=== PATIENT | female | born 1945 | race Caucasian/White ===

== ENCOUNTER → 2017-08-26 | Outpatient (CLI) | payer MEDICARE ==
--- NOTE | 2017-08-26 13:00 | Diagnostic Imaging Report ---
PROCEDURE:HIP RIGHT 2-3 VW (+/- PELVIS) COMPARISON:None. INDICATIONS:LOW BACK PAIN FINDINGS: See conclusion. CONCLUSION: No acute fracture or dislocation of the right hip. Degenerative changes of the right SI joint and lower lumbar spine. Dictated by: Leodan Phelan M.D. on 08/26/2017 at 13:02 Electronically approved by: Leodan Phelan M.D. on 08/26/2017 at 13:02
--- NOTE | 2017-08-26 13:09 | Diagnostic Imaging Report ---
PROCEDURE:SP LUMBAR, COMPLETE MIN 4VW TECHNIQUE:AP, lateral, coned-down lateral and bilateral oblique views lumbar spine INDICATION:Low back pain COMPARISON:None. FINDINGS: 5 nonrib-bearing lumbar vertebral bodies. Vertebral body height is normal. Extensive disc space narrowing from T12-S1 with near-complete loss of disc space height at all levels. Asymmetric disc space height loss at L3-L4 results in apex left scoliosis with large marginal osteophytes. Moderate facet arthropathy from L3-S1. CONCLUSION: Severe multilevel degenerative disc disease with moderate facet arthropathy. If the patient has symptoms of neuropathy MRI would be recommended to evaluate for nerve root impingement. Dictated by: Roman Greene M.D. on 08/26/2017 at 13:11 Electronically approved by: Roman Greene M.D. on 08/26/2017 at 13:11
== END ==
LOC: RAD 12:24
PROVIDERS: ATTEND Family Medicine
DX: M54.41 Lumbago with sciatica, right side (principal)
CPT/HCPCS: 72110

== ENCOUNTER → 2017-09-21 | Day surgery (SDC) | payer MEDICARE ==
[2017-09-20 12:11] LABS: BASOPHILS % 0.2 % (0.0-1.0); EOSINOPHILS # (AUTO) 0.2 (0.0-0.4); EOSINOPHILS % 2.9 % (0.0-6.0); HEMATOCRIT 41.3 % (34.2-44.1); HEMOGLOBIN 14.9 g/dL (12.0-16.0); LYMPHOCYTES # (AUTO) 2.3 (1.0-3.2); LYMPHOCYTES % 38.5 % (18.0-39.1); MEAN CORPUSCULAR HEMOGLOBIN 34.7 pg (28-32); MEAN CORPUSCULAR HGB CONC 36.1 g/dL (31-35); MEAN CORPUSCULAR VOLUME 96.3 fL (81-99); MONOCYTES # (AUTO) 0.6 (0.2-0.8); MONOCYTES % 10.7 % (4.4-11.3); NEUTROPHILS # (AUTO) 2.8 (2.1-6.9); NEUTROPHILS % 47.5 % (38.7-80.0); PLATELET COUNT 254 x10e3/uL (140-360); RED BLOOD COUNT 4.29 x10e6/uL (3.6-5.1); RED CELL DISTRIBUTION WIDTH 12.6 % (11.7-14.4)
[2017-09-20 12:30] LABS: INR 1.03; PARTIAL THROMBOPLASTIN TIME 25.2 seconds (23.8-35.5); PROTHROMBIN TIME 12.7 seconds (11.9-14.5)
[2017-09-20 12:38] LABS: ALANINE AMINOTRANSFERASE 23 IU/L (0-55); ALBUMIN 4.4 g/dL (3.5-5.0); ALBUMIN/GLOBULIN RATIO 1.2 (0.8-2.0); ALKALINE PHOSPHATASE 74 IU/L (40-150); ANION GAP 13.1 mmol/L (8-16); BLOOD UREA NITROGEN 9 mg/dL (7-26); BUN/CREATININE RATIO 13 (6-25); CALCIUM 10.5 mg/dL (8.4-10.2); CARBON DIOXIDE 33 mmol/L (22-29); CHLORIDE 90 mmol/L (98-107); CHOL/HDL RATIO 2.1 (3.0-3.6); CHOLESTEROL 240 MD/DL (0-199); EST GLOMERULAR FILTRATION RATE > 60 ML/MIN (60-); GLUCOSE 96 mg/dL (74-118); HDL CHOLESTEROL 115 MG/DL (40-60); LDL CHOLESTEROL 113 MG/DL (60-130); POTASSIUM 4.1 mmol/L (3.5-5.1); SODIUM 132 mmol/L (136-145); TRIGLYCERIDES 62 MG/DL (0-149)
--- NOTE | 2017-09-20 17:38 | Pre Op History & Physical ---
The patient will be presenting for cardiac catheterization with possible intervention. HISTORY: A 72-year-old lady who is known with hypertension and degenerative joint disease. The patient is seen evaluated earlier in our office when she had episodic chest pain. She had stress test which was very low risk stress test. The patient was treated medically. However, she presented on September 15, 2017 with severe chest pain, 4 episodes, progressively worsening and a lot of chest pain. For that reason, we elected to proceed with invasive cardiac workup. CURRENT MEDICATIONS: Aspirin 81 mg daily, metoprolol 50 mg twice a day, Celebrex 200 mg p.r.n., Prempro and Restasis, Prilosec 40 mg. ALLERGIES: CODEINE. PAST MEDICAL HISTORY: Hypertension, arthritis, tonsillectomy, cataract surgery. SOCIAL HISTORY: She is . She is a nonsmoker. She is a social alcohol drinker. She is a professor, educator. FAMILY HISTORY: Father at age 80. He had bypass surgery and CHF. Mother of brain aneurysm. REVIEW OF SYSTEMS: GENERAL: No fever, no chills. HEENT: Unremarkable. PULMONARY: No cough, no hemoptysis. CARDIAC: As per acute illness. GI: Occasional heartburn. : No hematuria. No dysuria. MUSCULOSKELETAL: Right minor knee pain. NEUROLOGIC: No seizure disorder, no headache. PHYSICAL EXAMINATION VITAL SIGNS: Height of 5 feet, 4 inches, weight 153 pounds, blood pressure 140/80, heart rate 60, respiratory rate 18. HEENT: Pupils are equal and reactive. NECK: No elevation of jugular venous pulsation. No bruit. CHEST: Clear to auscultation and percussion. HEART: PMI at 5th left intercostal space, normal 1st and 2nd heart sounds. ABDOMEN: Soft. There are good bowel sounds. EXTREMITIES: No cyanosis, no clubbing, no edema. IMPRESSION AND PLAN: Chest pain, low cardiac risk. Cardiac stress test on August 08, 2017. The patient seen urgently in the office with repeated chest pain. She is hypertensive. She is very anxious. In view of the repeated chest pain and the patient already had noninvasive cardiac workup, the patient is presenting for cardiac catheterization with possible intervention. Procedure, risks, benefits and alternatives are discussed and explained and questions are answered. Job#: [id number]
[~2017-09-21] VITALS: Ht 165.1 cm; Wt 59.0 kg
[2017-09-21] VITALS (11 sets, daily range): BP systolic 128–154; BP diastolic 68–97
[~2017-09-21] MED LIST: CELEBREX100 MG PO; DIPHENHYDRAMINE HCL INJ 50 MG/ML VIAL ONE; ESTRADIOL1 MG PO; FENTANYL CITRATE/PF 100MCG/2 ML INJ ONE; HEPARIN SOD/SOD CHLORIDE 2,000 ML ONE; IOPAMIDOL 370 MG/ML 200 ML INFUS..BTL INJ ONE; LIDOCAINE HCL 2% LOCAL 20 ML VIAL ONE; METOPROLOL-HCT1 EAC1 PO; MIDAZOLAM HCL 2 MG/2 ML VIAL ONE; POTASSIUM CHLO20 ME1 PO; PREMPRO 0.625-1 EAC1 PO; RESTASIS1 EACH OP; SODIUM CHLORIDE 0.9% 1000ML 1,000 ML ONE; TRAZODONE HCL50 MG PO
--- NOTE | 2017-09-21 13:38 | Operative Report ---
DATE OF PROCEDURE: September 21, 2017 TITLE OF PROCEDURE: Left cardiac catheterization. INDICATIONS: Patient having repeated stress test. Patient had noninvasive cardiac workup with low risk cardiac stress test, treated medically. However, patient presented again to the office with severe repeated chest pain, very anxious. So, we decided to proceed with the cardiac cath. TECHNICAL DETAILS: After the usual sterile preparation and draping procedure, intravenous Versed and fentanyl given for sedation, local lidocaine for anesthesia. A 4-Divehi sheath established in place. Jamar left 4 and 3DRC catheter to engage coronary. Pigtail for left ventriculogram and hemodynamic measurement. At the end of the procedure, sheath was removed. Hemostasis achieved manually. No complication and no blood loss. RESULTS: A. Coronary angiogram: 1. Left main: Short left main. 2. LAD: Proximally 20% lesion. A tortuous vessel is noted. 3. Circumflex coronary artery: Small 1st OM, large 2nd OM, tortuosity again noted. 4. Right coronary artery: Dominant artery with minimal plaquing. B. Hemodynamics: Aorta pressure 130/80. LV pressure 130/16. C. Left ventriculogram in the right anterior oblique view showed normal-sized ventricle with an ejection fraction of 60% to 65%. IMPRESSION: 1. Minimal plaquing. 2. Short left main. 3. Dominant right coronary artery. 4. Left ventricular ejection fraction of 60% to 65%. RECOMMENDATIONS: Medical therapy. COMPLICATIONS: None. BLOOD LOSS: None. Job#: [id number]
== END | disposition home or self-care (01) ==
LOC: CATH LAB 09:30
PROVIDERS: ATTEND Internal Medicine Cardiovascular Disease
DX: I25.10 Atherosclerotic heart disease of native coronary artery without angina pectoris (principal); I77.1 Stricture of artery; I10 Essential (primary) hypertension; R06.09 Other forms of dyspnea; R00.2 Palpitations; M19.90 Unspecified osteoarthritis, unspecified site; F41.9 Anxiety disorder, unspecified; Z01.812 Encounter for preprocedural laboratory examination; Z79.82 Long term (current) use of aspirin; Z82.49 Family history of ischemic heart disease and other diseases of the circulatory system
CPT/HCPCS: 36415; 80053; 80061; 85025; 85610; 85730; 93458; C1766; J1200; J2001; J2250; J7030; Q9967

== ENCOUNTER → 2018-02-16 | Day surgery (SDC) | payer MEDICARE ==
--- NOTE | 2018-02-14 16:03 | Diagnostic Imaging Report ---
EXAMINATION: PA and lateral views of the chest. COMPARISON: None CLINICAL HISTORY: Preop exam DISCUSSION: Lines/tubes: None. Lungs: The lungs are well inflated and clear. There is no evidence of pneumonia or pulmonary edema. Pleura: There is no pleural effusion or pneumothorax. Heart and mediastinum: Cardiomediastinal silhouette is unremarkable. Pulmonary vasculature is normal. Bones and soft tissues: No acute bony abnormalities. Degenerative changes in the thoracic spine IMPRESSION: No acute cardiopulmonary abnormalities. Signed by: Dr. Nitin Rivera M.D. on 02/14/2018 3:59 PM
[2018-02-14 16:53] LABS: BASOPHILS % 0.2 % (0.0-1.0); EOSINOPHILS # (AUTO) 0.2 (0.0-0.4); EOSINOPHILS % 2.9 % (0.0-6.0); HEMOGLOBIN 13.1 g/dL (12.0-16.0); LYMPHOCYTES # (AUTO) 2.6 (1.0-3.2); LYMPHOCYTES % 41.1 % (18.0-39.1); MEAN CORPUSCULAR HEMOGLOBIN 33.8 pg (28-32); MEAN CORPUSCULAR HGB CONC 34.5 g/dL (31-35); MEAN CORPUSCULAR VOLUME 97.9 fL (81-99); MONOCYTES # (AUTO) 0.7 (0.2-0.8); MONOCYTES % 11.4 % (4.4-11.3); NEUTROPHILS # (AUTO) 2.8 (2.1-6.9); NEUTROPHILS % 44.4 % (38.7-80.0); PLATELET COUNT 278 x10e3/uL (140-360); RED BLOOD COUNT 3.88 x10e6/uL (3.6-5.1); RED CELL DISTRIBUTION WIDTH 12.5 % (11.7-14.4)
[~2018-02-16] MED LIST changes: +BUPIVACAINE 0.5%/EPI 30 ML SDV INJ ONE; +CEFAZOLIN SOD 2 GM/D5W 50ML 50 ML IV ONE; +DEXAMETHASONE SOD PHOS INJ 4 MG/ML VIAL ONE; -DIPHENHYDRAMINE HCL INJ 50 MG/ML VIAL ONE; +EPHEDRINE SULFATE INJ 50 MG/10 ML SYR ONE; -HEPARIN SOD/SOD CHLORIDE 2,000 ML ONE; -IOPAMIDOL 370 MG/ML 200 ML INFUS..BTL INJ ONE; -LIDOCAINE HCL 2% LOCAL 20 ML VIAL ONE; +LIDOCAINE HCL 2% LOCAL INJ 5 ML SDV VIAL INJ ONE; +ONDANSETRON HCL INJ 2 MG/ML VIAL ONE; +PROPOFOL IV EMULSION 10 MG/ML 20 ML VIAL ONE; +SEVOFLURANE INHAL SOLN 250 ML PEN BTL ONE; -SODIUM CHLORIDE 0.9% 1000ML 1,000 ML ONE
[2018-02-16 08:26] LABS: ANION GAP 13.4 mmol/L (8-16); BLOOD UREA NITROGEN 7 mg/dL (7-26); BUN/CREATININE RATIO 11 (6-25); CALCIUM 8.7 mg/dL (8.4-10.2); CARBON DIOXIDE 24 mmol/L (22-29); CHLORIDE 95 mmol/L (98-107); CREATININE, SERUM 0.64 mg/dL (0.57-1.11); EST GLOMERULAR FILTRATION RATE > 60 ML/MIN (60-); GLUCOSE 92 mg/dL (74-118); POTASSIUM 3.4 mmol/L (3.5-5.1); SODIUM 129 mmol/L (136-145)
[2018-02-16 10:22] VITALS: BP 149/77
--- NOTE | 2018-02-17 09:51 | Operative Report ---
DATE OF PROCEDURE: February 16, 2018 PREOPERATIVE DIAGNOSES 1. Right knee medial meniscus tear. 2. Right knee degenerative joint disease of the knee. 3. Right knee anterior cruciate ligament tear. POSTOPERATIVE DIAGNOSES 1. Right knee medial meniscus tear. 2. Right knee lateral meniscus tear. 3. Right knee anterior cruciate ligament tear. 4. Right knee degenerative joint disease of the knee. PROCEDURES PERFORMED 1. Right knee examination under anesthesia. 2. Right knee arthroscopy. 3. Right knee partial medial meniscectomy. 4. Right knee partial lateral meniscectomy. 5. Right knee resection of the anterior cruciate ligament stump. 6. Chondroplasties of the patella, trochlea, medial femoral condyle, medial tibial plateau, the lateral femoral condyle, and the lateral tibial plateau. HELP DESK REP: Shannen Barry ANESTHESIA: General endotracheal intubation anesthesia. IV FLUIDS: Per the anesthesia record. OPERATIVE PROCEDURE IN DETAIL: Ms. Torrez was taken to the operating room and placed in the supine position on the operating table. Following induction of general anesthesia as well as endotracheal intubation, the patient's right lower extremity was examined under anesthesia. She was found to have a mild effusion within the knee joint. She was also found to have an anterior cruciate ligament deficient knee with a positive Garcia's test and a positive anterior drawer test. The patient's lower extremity was prepped and draped in standard surgical fashion. A 2-portal technique was used to provide this patient arthroscopic evaluation of the knee joint. Examination of the suprapatellar pouch, medial and lateral gutters found no evidence of loose bodies. There was, however, evidence of chondromalacia of the patellar and trochlear surfaces. The scope was placed in the medial compartment. Examination of the medial compartment demonstrated a lowkmo-smyq-lleg tear of the medial meniscus. There was also chondromalacia of the articulating surfaces. A combination of biting forceps and a motorized shaver were used to resect the torn portion of the meniscus. Chondroplasties of the medial femoral condyle and medial tibial plateau were performed at this time. The scope was then advanced into the intercondylar notch, and the anterior cruciate ligament was found to be torn. There was a prominent stump. A shaver was used to resect this portion of the anterior cruciate ligament tear. The scope was then advanced to the lateral compartment, and there was a tear in the posterior horn of the lateral meniscus. There was chondromalacia of the articulating surfaces. A combination of biting forceps and a motorized shaver was used to resect the torn portion of the meniscus. Chondroplasties of the lateral femoral condyle and lateral tibial plateau were performed at this time. The scope was then placed in the suprapatellar pouch, and chondroplasties of the patella and trochlea were performed. The knee was then deflated of its sterile normal saline. Each of the portal sites were closed using 4-0 nylon suture. The portal sites as well as the knee itself were then closed. Sterile dressings were then applied. The patient was then awakened and taken to the postanesthesia care unit in stable condition. Shannen Barry acted as the senior underwriting assistant for this case and was necessary for both prepping and draping the patient as well as the positioning of the leg during surgery that allowed this case to be successful. Job#: [id number]
== END | disposition home or self-care (01) ==
LOC: OR 07:01
PROVIDERS: ATTEND Specialist
DX: S83.221A Peripheral tear of medial meniscus, current injury, right knee, initial encounter (principal); S83.281A Other tear of lateral meniscus, current injury, right knee, initial encounter; S83.511A Sprain of anterior cruciate ligament of right knee, initial encounter; M17.11 Unilateral primary osteoarthritis, right knee; M22.41 Chondromalacia patellae, right knee; M70.62 Trochanteric bursitis, left hip; I10 Essential (primary) hypertension; K21.9 Gastro-esophageal reflux disease without esophagitis; K75.9 Inflammatory liver disease, unspecified; X58.XXXA Exposure to other specified factors, initial encounter; Z88.6 Allergy status to analgesic agent; Z01.810 Encounter for preprocedural cardiovascular examination; Z01.812 Encounter for preprocedural laboratory examination; Z01.818 Encounter for other preprocedural examination; Z82.61 Family history of arthritis
CPT/HCPCS: 29880; 36415 ×2; 71046; 80048; 85025; 93005; J0690; J1100; J2001; J2250; J2405; J2704

== ENCOUNTER 2019-08-06 01:09 | Inpatient (IN) | payer MEDICARE, OTHER ==
[~2019-08-06] VITALS: Ht 165.1 cm; Wt 63.1 kg
[~2019-08-06 01:09] MED LIST changes: -BUPIVACAINE 0.5%/EPI 30 ML SDV INJ ONE; -CEFAZOLIN SOD 2 GM/D5W 50ML 50 ML IV ONE; -DEXAMETHASONE SOD PHOS INJ 4 MG/ML VIAL ONE; -EPHEDRINE SULFATE INJ 50 MG/10 ML SYR ONE; -FENTANYL CITRATE/PF 100MCG/2 ML INJ ONE; -LIDOCAINE HCL 2% LOCAL INJ 5 ML SDV VIAL INJ ONE; -MIDAZOLAM HCL 2 MG/2 ML VIAL ONE; -ONDANSETRON HCL INJ 2 MG/ML VIAL ONE; -PROPOFOL IV EMULSION 10 MG/ML 20 ML VIAL ONE; -SEVOFLURANE INHAL SOLN 250 ML PEN BTL ONE
[2019-08-06] MEDS ORDERED: ACETAMINOPHEN 325 MG TAB ONE (01:25)
[2019-08-06] MEDS ORDERED: SODIUM CHLORIDE 0.9% 1000ML 1,000 ML IV ONE ×2 (01:30→04:00)
[2019-08-06] MEDS ORDERED: ACETAMINOPHEN 325 MG TAB PO ONE (01:30)
[2019-08-06 01:33] LABS: BASOPHILS % 0.1 % (0.0-1.0); EOSINOPHILS # (AUTO) 0.1 (0.0-0.4); EOSINOPHILS % 0.6 % (0.0-6.0); HEMATOCRIT 30.1 % (34.2-44.1); HEMOGLOBIN 10.2 g/dL (12.0-16.0); LYMPHOCYTES # (AUTO) 0.7 (1.0-3.2); LYMPHOCYTES % 7.2 % (18.0-39.1); MEAN CORPUSCULAR HGB CONC 33.9 g/dL (31-35); MEAN CORPUSCULAR VOLUME 97.4 fL (81-99); MONOCYTES # (AUTO) 0.6 (0.2-0.8); MONOCYTES % 5.9 % (4.4-11.3); NEUTROPHILS # (AUTO) 8.3 (2.1-6.9); NEUTROPHILS % 85.8 % (38.7-80.0); PLATELET COUNT 197 x10e3/uL (140-360); RED BLOOD COUNT 3.09 x10e6/uL (3.6-5.1)
[2019-08-06] MEDS: CEFEPIME 2 GM/NS 0.9% 100 ML 100 ML IV SCH ×4 (01:35→21:30)
[2019-08-06 01:41] LABS: PARTIAL THROMBOPLASTIN TIME 42.4 seconds (23.8-35.5)
[2019-08-06 01:46] LABS: INR 1.53; PROTHROMBIN TIME 19.4 seconds (11.9-14.5)
[2019-08-06 01:54] LABS: CREATINE KINASE MB 0.8 ng/mL (0-5.0)
[2019-08-06 01:56] LABS: ALANINE AMINOTRANSFERASE 14 IU/L (0-55); ALBUMIN 2.8 g/dL (3.5-5.0); ALBUMIN/GLOBULIN RATIO 0.7 (0.8-2.0); ALKALINE PHOSPHATASE 87 IU/L (40-150); ANION GAP 12.6 mmol/L (8-16); BLOOD UREA NITROGEN 13 mg/dL (7-26); BUN/CREATININE RATIO 16 (6-25); CARBON DIOXIDE 22 mmol/L (22-29); CHLORIDE 100 mmol/L (98-107); CREATININE, SERUM 0.79 mg/dL (0.57-1.11); EST GLOMERULAR FILTRATION RATE > 60 ML/MIN (60-); GLUCOSE 110 mg/dL (74-118); POTASSIUM 4.6 mmol/L (3.5-5.1); SODIUM 130 mmol/L (136-145)
[2019-08-06 02:04] LABS: BILIRUBIN,URINE NEGATIVE (NEGATIVE); CLARITY,URINE CLEAR (CLEAR); COLOR,URINE YELLOW (YELLOW); KETONES,URINE NEGATIVE (NEGATIVE); LEUKOCYTE ESTERASE ,URINE 1+ (NEGATIVE); NITRITE,URINE NEGATIVE (NEGATIVE); PROTEIN,URINE DIPSTICK 2+ (NEGATIVE); URINE UROBILINOGEN 0.2 mg/dL (0.2 - 1)
[2019-08-06 02:09] LABS: BACTERIA,URINE MANY /HPF; EPITHELIAL CELLS,URINE FEW /LPF; RBC,URINE 21-50 /HPF (0-5); WBC,URINE (MAN) >50 /HPF (0-5)
[2019-08-06] MEDS ORDERED: DIGOXIN INJ 0.25 MG/ML 2 ML AMP IV ONE (02:15)
[2019-08-06] MEDS ORDERED: DIGOXIN INJ 0.25 MG/ML 2 ML AMP ONE (02:15)
--- NOTE | 2019-08-06 02:24 | Diagnostic Imaging Report ---
EXAMINATION: CHEST SINGLE (PORTABLE) INDICATION: ^FEVER ^[id number] ^0130 ^Y COMPARISON: None FINDINGS: AP view TUBES and LINES: None. LUNGS: Evaluation of the lungs is limited due to technique. No gross consolidation is identified. The pulmonary vasculature is unremarkable. PLEURA: No pleural effusion or pneumothorax. HEART AND MEDIASTINUM: The cardiac silhouette is at the upper limit of normal in size. BONES AND SOFT TISSUES: No acute osseous lesion. Soft tissues are unremarkable. UPPER ABDOMEN: No free air under the diaphragm. IMPRESSION: Limited study. No focal lung consolidation is identified. Signed by: Sylvain Barbosa MD on 08/06/2019 2:21 AM
[2019-08-06] MEDS ORDERED: METOPROLOL TARTRATE 50 MG TAB PO ONE (02:45)
[2019-08-06] MEDS ORDERED: SODIUM CHLORIDE FLUSH 10 ML SYR INJ PRN (04:00)
[2019-08-06] MEDS ORDERED: ONDANSETRON HCL INJ 2MG/ML 2ML 2 MG/ML VIAL IV PRN (04:00)
[2019-08-06 06:18] VITALS: BP 116/69
--- NOTE | 2019-08-06 06:29 | History and Physical ---
HISTORY OF PRESENT ILLNESS: The patient is a 74-year-old lady, who presents with AFib with RVR secondary to sepsis from urinary tract infection, where she is feeling a little bit better at the current moment with her heart rate being improved. Of note, she was recently admitted to hospital secondary to urinary tract infection and she has been discharged of about 7 days now. PAST MEDICAL HISTORY: Afib and hypertension. MEDICATIONS: See JUN. ALLERGIES: CODEINE. SOCIAL HISTORY: Nonsmoker, nondrinker. FAMILY HISTORY: Hypertension. PHYSICAL EXAMINATION: VITAL SIGNS: Temperature 98.6, pulse 100, blood pressure 142/72, sats 97% on room air. GENERAL: No apparent distress, lying in bed. NECK: Supple. No lymphadenopathy. CARDIOVASCULAR: Irregularly irregular. LUNGS: Clear to auscultation bilaterally. ABDOMEN: Good bowel sounds. Soft, nontender. EXTREMITIES: No clubbing or cyanosis. NEUROLOGIC: Nonfocal. Moves all extremities x4. ASSESSMENT AND PLAN: 1. Sepsis secondary to urinary tract infection, placed on IV antibiotics. We will check culture. 2. Anemia. Continue to monitor. 3. Hypertension. Continue with her metoprolol. 4. Atrial fibrillation with rapid ventricular response. Continue with current care and continue with telemetry. Her environmental services worker, Dr. Ho has already been consulted. Please see hospital chart for full details. MD CLAU Chicas/CHANTAL /[id number]
[2019-08-06 07:45] VITALS: BP 116/71
--- NOTE | 2019-08-06 07:46 | NUR ---
Received patient from ER, Patient welcomed and offered a bed,Patient condition throughout the shift was stable, patient endorsed to next shift for continuity of care.
[2019-08-06] MEDS ORDERED: HYDROCHLOROTHIAZIDE 25 MG TAB PO SCH (09:00)
[2019-08-06] MEDS ORDERED: METOPROLOL TARTRATE 50 MG TAB PO SCH (09:00)
[2019-08-06 09:39] LABS: CREATINE KINASE MB 1.4 ng/mL (0-5.0)
[2019-08-06] MEDS: HYDROCHLOROTHIAZIDE 25 MG TAB PO SCH ×2 (10:00→20:39)
[2019-08-06 10:36] VITALS: BP 116/71
--- NOTE | 2019-08-06 11:30 | NUR ---
WITH STANDBY ASSIST, PT OOB TO BATHROOM, VOIDING AND STOOLING PER PCT, STANDBY ASSIST BACK TO BED, CALL LIGHT WITHIN REACH, BED ALARM ON
--- NOTE | 2019-08-06 11:54 | NUR ---
TELEPHONED MD CARDOZA OFFICE TO MAKE AWARE OF CONSULT, SPOKE WITH LATOYA, AWAITING CALL BACK
[2019-08-06 11:55] VITALS: BP 118/76
[2019-08-06] MEDS ORDERED: GABAPENTIN300 MG PO (13:07)
--- NOTE | 2019-08-06 13:09 | NUR ---
HOME MEDICATIONS CLARIFIED WITH PTS , Addendum: 08/06/19 at 1315 by Yasmeen Farrar RN UNABLE TO REMEMBER DOSE OF ELIQIUIS
--- NOTE | 2019-08-06 13:15 | NUR ---
TELEPHONED MD PHILLIPS TO RESTART HOME MEDICATIONS, AWAITING CALL BACK
[2019-08-06] MEDS ORDERED: ELIQUIS5 M1 PO (13:20)
--- NOTE | 2019-08-06 13:22 | NUR ---
SPOKE WITH MD PHILLIPS REGARDING HOME MEDICATIONS, SPOKE WITH MD MIKE, AWARE OF NEW CONSULT
[2019-08-06] MEDS: ACETAMINOPHEN 325 MG TAB PO PRN ×2 (13:39→20:39)
[2019-08-06] MEDS: GABAPENTIN 300 MG CAP PO PRN (13:40)
--- NOTE | 2019-08-06 15:39 | NUR ---
MERCEDES WATER CONTROL STATION ENGINEER WITH MD MIKE INTO SEE PT, DISCUSSED POC, OKAY TO DC FROM ALUMINUM POOL INSTALLER TOMORROW WHEN ALAN OKAY TO DC
--- NOTE | 2019-08-06 16:26 | Consultation ---
DATE OF CONSULTATION: 08/06/2019 REASON FOR CONSULTATION: Atrial fibrillation. CHIEF COMPLAINT: Fevers, chills, and dysuria. HISTORY OF PRESENT ILLNESS: This is a 74-year-old female, well known to practice with history of atrial fibrillation, hypertension, hypothyroidism, arthritis, anxiety, and recent right frontal lobe CVA, 07/2019. The patient presents to [facility] ER with complaints of fevers, chills, dysuria, and temperature of 102. The patient was noted in atrial fibrillation RVR with a heart rate 120s. Cardiology is consulted. The patient is seen in room. Reports intermittent fevers and chills for the past several days and difficulty urinating. Reports being compliant to her beta- scott/Eliquis therapy. Denies any hematuria, melena, or tarry bloody stools. Denies any chest pains or shortness of breath. PAST MEDICAL HISTORY: Recent CVA right frontal lobe 07/2019, atrial fibrillation 06/2019, heart catheterization 09/21/2017, showing 20% to 30% LAD, EF about 60% to 65%, hypertension, arthritis, and anxiety. ALLERGIES: TO CODEINE. HOME MEDICATIONS: Eliquis 5 mg b.i.d., metoprolol 50 mg twice daily, losartan 50 mg daily, Celebrex 200 mg b.i.d., Restasis eye drops twice a day, and Prilosec 40 mg daily. REVIEW OF SYSTEMS: GENERAL: Denies any weight changes or fatigue. Positive for weakness. Positive for fevers and chills. SKIN: No rash or sores. HEENT: Denies any nausea, vomiting, vision change, blurred vision, double vision, epistaxis, sore throat, or swollen neck. CARDIAC: Denies any chest pain. Positive for intermittent palpitations. Positive for dyspnea on exertion. Denies any orthopnea, PND, or lower extremity edema. RESPIRATORY: Denies any shortness of breath or any wheezing, coughing, or hemoptysis. GI: Reports good appetite. Denies any nausea, vomiting, diarrhea, constipation, any tarry or bloody stools. URINARY: Positive for frequency. Positive for urgency. Positive for dysuria. Denies any hematuria. VASCULAR: Denies any lower extremity edema or claudication. MUSCULOSKELETAL: Denies any muscle weakness. Positive for joint pains and back pains. NEUROLOGIC: Denies any numbness, tingling, tremors, paralysis, blackout or seizures. HEMATOLOGY: Denies any bleeding or bruising. ENDOCRINE: Denies heat or cold intolerance, polyuria, polydipsia, or polyphagia. PHYSICAL EXAMINATION: VITAL SIGNS: Height 65 inches, weight 130 pounds, temperature 97.7, pulse 76, respiratory rate 21, blood pressure 118/76, and pulse ox 99% on room air. GENERAL: Appears stated age, reliable informant, in no acute distress. SKIN: No rashes or bruises noted. HEENT: Normocephalic. Pupils are equal and reactive. Extraocular movements intact. Trachea midline. No JVD. No carotid bruit noted. Oral mucosa pink. HEART: Irregular rhythm. No murmurs or clicks noted. PMI 4th intercostal space. LUNGS: Bilateral breath sounds clear to auscultation. ABDOMEN: Soft, nontender, and nondistended. No organomegaly noted. MUSCULOSKELETAL: Good muscle strength throughout. No lower extremity swelling noted. VASCULAR: +2 radial pulses, +1 DP/PT pulses bilaterally. NEUROLOGIC: Cranial nerves 2 through 12 seem intact. LABORATORY DATA: White count 9, hemoglobin 10, hematocrit 30, and platelets 187. Sodium 130, potassium 4.6, chloride 100, BUN 13, and creatinine 0.7. Troponin 0.01, next 0.02. INR 1.5. UA positive for leukocyte esterase and urine wbc greater than 50,000 and positive for urine bacteria. Chest x-ray, no acute abnormalities. EKG showing atrial fibrillation with RVR, heart rate 119. ASSESSMENT: 1. Urinary tract infection. 2. Atrial fibrillation. 3. Recent cerebrovascular accident, right frontal lobe, 07/2019. 4. Hypertension. 5. Hypothyroidism. PLAN: 1. The patient presents to [facility] ER with complaints of fevers, chills, dysuria with a temperature of 102.5. UA consistent with UTI, on antibiotic therapy as per primary service. 2. The patient with chronic atrial fibrillation, on rate control therapy. Continue metoprolol 50 mg b.i.d. 3. Continue OAC therapy, Eliquis 5 mg b.i.d. 4. Continue telemonitoring. 5. We will continue to monitor the patient and adjust cardiac therapy as clinic course dictates. Thank you very much for this consult. SEEN AND EVALUATED AGREE WITH NOTE Dictated by Jagjit Condado, MIXING PLANT DUMPER Destini Ho MD DC/CHANTAL /[id number] MTDDominick
[2019-08-06] MEDS: APIXABAN 5 MG TABLET PO SCH (17:00)
[2019-08-06 19:44] LABS: CREATINE KINASE MB 1.3 ng/mL (0-5.0)
[2019-08-06 20:00] VITALS: BP 118/76
[2019-08-06 20:12] VITALS: BP 145/79
[2019-08-06] MEDS ORDERED: SODIUM CHLORIDE 0.9% 250ML 250 ML ONE (20:19)
[2019-08-06] MEDS: TRAZODONE HCL 50 MG TAB PO SCH (20:38)
[2019-08-06] MEDS: METOPROLOL TARTRATE 50 MG TAB PO SCH (23:13)
--- NOTE | 2019-08-06 23:14 | NUR ---
Patient HR [address] Ho regarding HR and in AFIB, BP 114/80, 138, 94%, 25 RR. Patient metoprolol ordered daily and last dose 0300. New order Metoprolol tart 50 mg po Q 8 HRS hold for HR less 70, first dose now.
[2019-08-07] VITALS (8 sets, daily range): BP systolic 133–153; BP diastolic 76–94
[2019-08-07] MEDS: ACETAMINOPHEN 325 MG TAB PO PRN ×3 (03:44→17:01)
[2019-08-07 05:37] LABS: BASOPHILS % 0.2 % (0.0-1.0); EOSINOPHILS # (AUTO) 0.2 (0.0-0.4); EOSINOPHILS % 1.6 % (0.0-6.0); HEMATOCRIT 34.6 % (34.2-44.1); HEMOGLOBIN 11.9 g/dL (12.0-16.0); LYMPHOCYTES # (AUTO) 1.4 (1.0-3.2); LYMPHOCYTES % 14.6 % (18.0-39.1); MEAN CORPUSCULAR HEMOGLOBIN 33.1 pg (28-32); MEAN CORPUSCULAR HGB CONC 34.4 g/dL (31-35); MEAN CORPUSCULAR VOLUME 96.4 fL (81-99); MONOCYTES # (AUTO) 1.1 (0.2-0.8); MONOCYTES % 11.6 % (4.4-11.3); NEUTROPHILS % 71.5 % (38.7-80.0); PLATELET COUNT 216 x10e3/uL (140-360); RED BLOOD COUNT 3.59 x10e6/uL (3.6-5.1); RED CELL DISTRIBUTION WIDTH 12.7 % (11.7-14.4)
[2019-08-07 06:02] LABS: ALANINE AMINOTRANSFERASE 10 IU/L (0-55); ALBUMIN 2.6 g/dL (3.5-5.0); ALBUMIN/GLOBULIN RATIO 0.7 (0.8-2.0); ALKALINE PHOSPHATASE 93 IU/L (40-150); ANION GAP 12.2 mmol/L (8-16); BLOOD UREA NITROGEN 6 mg/dL (7-26); BUN/CREATININE RATIO 10 (6-25); CARBON DIOXIDE 28 mmol/L (22-29); CHLORIDE 99 mmol/L (98-107); CHOL/HDL RATIO 2.9 (3.0-3.6); CHOLESTEROL 150 MD/DL (0-199); CREATININE, SERUM 0.62 mg/dL (0.57-1.11); EST GLOMERULAR FILTRATION RATE > 60 ML/MIN (60-); GLUCOSE 104 mg/dL (74-118); HDL CHOLESTEROL 51 MG/DL (40-60); LDL CHOLESTEROL 84 MG/DL (60-130); SODIUM 136 mmol/L (136-145); TRIGLYCERIDES 76 MG/DL (0-149)
[2019-08-07] MEDS: CEFEPIME 2 GM/NS 0.9% 100 ML 100 ML IV SCH ×3 (06:02→22:00)
[2019-08-07 06:03] LABS: CALCIUM 9.7 mg/dL (8.4-10.2); POTASSIUM 3.2 mmol/L (3.5-5.1)
[2019-08-07] MEDS: METOPROLOL TARTRATE 50 MG TAB PO SCH ×2 (06:39→16:59)
[2019-08-07] MEDS ORDERED: POTASSIUM CHLORIDE 20 MEQ TAB CR PO ONE (07:00)
--- NOTE | 2019-08-07 07:30 | NUR ---
Bedside report and walking rounds completed with on coming nurse. Patient in bed with call light within reach. No concerns or issues noted.
--- NOTE | 2019-08-07 07:32 | NUR ---
BEDSIDE SHIFT REPORT RECEIVED PT IN STABLE CONDITION, DENIES PAIN AT THIS TIME, UPDATED ON POC VOICED UNDERSTANDING, CALL LIGHT IN REACH WILL CONTINUE OT MONITOR
[2019-08-07] MEDS: HYDROCHLOROTHIAZIDE 25 MG TAB PO SCH ×2 (08:50→20:22)
[2019-08-07] MEDS: APIXABAN 5 MG TABLET PO SCH (16:59)
[2019-08-07] MEDS: GABAPENTIN 300 MG CAP PO PRN (17:01)
[2019-08-07] MEDS: TRAZODONE HCL 50 MG TAB PO SCH (20:22)
[2019-08-08 00:27] VITALS: BP 157/95
[2019-08-08] MEDS: ACETAMINOPHEN 325 MG TAB PO PRN (02:48)
[2019-08-08 05:12] VITALS: BP 131/84
[2019-08-08] MEDS: CEFEPIME 2 GM/NS 0.9% 100 ML 100 ML IV SCH (06:38)
--- NOTE | 2019-08-08 07:20 | NUR ---
Bedside report and walking rounds completed with on coming nurse. Patient in bed with call light within reach. No issues or concerns noted.
[2019-08-08 07:51] VITALS: BP 143/94
[2019-08-08] MEDS: METOPROLOL TARTRATE 50 MG TAB PO SCH (08:20)
[2019-08-08] MEDS: HYDROCHLOROTHIAZIDE 25 MG TAB PO SCH (08:20)
[2019-08-08 08:30] VITALS: BP 143/94
--- NOTE | 2019-08-08 09:26 | NUR ---
INFORMED DR PHILLIPS OF C/S RESULTS, ORDERS RECEIVED TO DISCHARGE PATIENT AND MD TO CALL IN ANTIBIOTIC SCRIPT TO PATIENTS PHARMACY.
[2019-08-08] MEDS ORDERED: ONDANSETRON HCL 4 MG ORAL DISINTEGRATING TAB PO PRN (10:00)
[2019-08-08 10:24] VITALS: BP 143/94
--- NOTE | 2019-08-08 11:03 | NUR ---
IMM letter delivered and explained to pt. Pt states she is ready to go home. Signed copy placed in chart. Copy to pt.
[2019-08-08] MEDS ORDERED: METOPROLOL TAR100 MG PO (11:05)
[2019-08-08] MEDS ORDERED: HYDROCHLOROTH12.5 MG (11:07)
--- NOTE | 2019-08-09 06:26 | Discharge Summary ---
DISCHARGE DIAGNOSES: 1. Sepsis secondary to urinary tract infection. 2. Atrial fibrillation with rapid ventricular response. HISTORY OF PRESENT ILLNESS AND HOSPITAL COURSE: See hospital chart for full details. The patient presented with AFib with RVR, feeling better. She was noticed to have some evidence of sepsis secondary to urinary tract infection. She was brought in and placed on IV antibiotics, placed on telemetry, was seen by her airplane cover maker, who increased her beta-scott medication with significant improvement of her chronic AFib to where it is more appropriately rate controlled. Urine culture ended up growing out E coli. She was then discharged home with p.o. Macrobid 100 mg b.i.d. for 10 more days to complete the course. She will follow up with primary care physician, Dr. Dooley in about one week and return sooner if she has any issues. She will follow up with Dr. Ho in regard to her AFib. Please see hospital chart for full details. MD CLAU Chicas/CHANTAL /[id number]
== END 2019-08-08 11:40 | disposition home or self-care (01) | DRG 872 ==
LOC: ER 01:09 → ERHOLD 04:10 → IMCU 06:47
PROVIDERS: ADMIT Internal Medicine; ATTEND Internal Medicine
DX: A41.9 Sepsis, unspecified organism (principal); N30.01 Acute cystitis with hematuria; I48.20 Chronic atrial fibrillation, unspecified; I10 Essential (primary) hypertension; I48.91 Unspecified atrial fibrillation; D64.9 Anemia, unspecified; E03.9 Hypothyroidism, unspecified; Z87.440 Personal history of urinary (tract) infections; Z88.5 Allergy status to narcotic agent; Z87.898 Personal history of other specified conditions; Z82.49 Family history of ischemic heart disease and other diseases of the circulatory system; Z86.73 Personal history of transient ischemic attack (TIA), and cerebral infarction without residual deficits; B96.20 Unspecified Escherichia coli [E. coli] as the cause of diseases classified elsewhere
CPT/HCPCS: 36415; 71045; 80053; 80061; 81001; 82550; 82553; 83605; 83735; 84443; 84484; 85025; 85610; 85730; 87040; 87071; 87086; 87186; 87205; 87635; 93005; 99284; J1160; J2405; J7030; J7050

== ENCOUNTER → 2021-09-15 | Outpatient (CLI) | payer MEDICARE ==
[~2021-09-15] MED LIST changes: +ELIQUIS5 M1 PO; +GABAPENTIN300 MG PO; +HYDROCHLOROTH12.5 MG; +METOPROLOL TAR100 MG PO
== END ==
LOC: MRI 10:43
PROVIDERS: ATTEND Family Medicine
DX: M54.16 Radiculopathy, lumbar region (principal)
CPT/HCPCS: 72148

== ENCOUNTER → 2021-11-19 | Day surgery (SDC) | payer MEDICARE ==
[2021-11-17 12:41] LABS: BASOPHILS % 0.2 % (0.0-1.0); EOSINOPHILS # (AUTO) 0.1 (0.0-0.4); EOSINOPHILS % 1.7 % (0.0-6.0); HEMATOCRIT 41.9 % (34.2-44.1); HEMOGLOBIN 13.8 g/dL (12.0-16.0); LYMPHOCYTES % 35.1 % (18.0-39.1); MEAN CORPUSCULAR HEMOGLOBIN 32.3 pg (28-32); MEAN CORPUSCULAR HGB CONC 32.9 g/dL (31-35); MEAN CORPUSCULAR VOLUME 98.1 fL (81-99); MONOCYTES # (AUTO) 0.7 (0.2-0.8); MONOCYTES % 11.7 % (4.4-11.3); NEUTROPHILS # (AUTO) 2.9 (2.1-6.9); NEUTROPHILS % 51.1 % (38.7-80.0); PLATELET COUNT 247 x10e3/uL (140-360); RED BLOOD COUNT 4.27 x10e6/uL (3.6-5.1); RED CELL DISTRIBUTION WIDTH 13.1 % (11.7-14.4)
[~2021-11-19] MED LIST changes: +BUPIVACAINE 0.25% 30ML SDV ONE; +HYDROCODON-ACE1 EA12 PO; +IOPAMIDOL 200 MG/ML 20 ML VIAL IT ONE; +LIDOCAINE HCL 1% 30ML-PF VIAL ONE; +MIDAZOLAM HCL 2 MG/2 ML VIAL ONE; +ONE DAILY ESSE1 EACH; +OSTEO BI-FLEX1 EACH; +POVIDONE IODINE 0.05% 0.05 % ML PO ONE; +PROPOFOL IV EMULSION 10 MG/ML 20 ML VIAL ONE
[2021-11-19 07:15] VITALS: BP 128/72
== END | disposition home or self-care (01) ==
LOC: OR 07:41
PROVIDERS: ATTEND Physical Medicine & Rehabilitation Pain Medicine
DX: M47.896 Other spondylosis, lumbar region (principal); M06.9 Rheumatoid arthritis, unspecified; I10 Essential (primary) hypertension; N39.0 Urinary tract infection, site not specified; Z88.6 Allergy status to analgesic agent; Z01.812 Encounter for preprocedural laboratory examination; Z20.822 Contact with and (suspected) exposure to COVID-19; Z79.899 Other long term (current) drug therapy; Z86.19 Personal history of other infectious and parasitic diseases
CPT/HCPCS: 0223U; 36415; 64493; 64494; 64495; 76000; 85025; J2001; J2250; J2704; Q9967